=== PATIENT | male | born 1985 | race Caucasian/White ===

== ENCOUNTER 2017-10-19 17:56 | Emergency (ER) | payer SELFPAY ==
[2017-10-19 18:11] VITALS: BP 127/75; PULSE 76; RESP 16; TEMP 98.5; O2SAT 98
[2017-10-19] MEDS ORDERED: Tdap Vaccine 0.5 ml Vial (10-64 yrs) IM ONE ×2 (18:42→18:48)
--- NOTE | 2017-10-19 18:52 | C.PDOC ---
History Of Present Illness 32 y/o male with no pmh comes to ed with pain to right foot s/p stepping on nail that went through his construction boot earlier today. pt sts nail went approx one half inch into foot, did not appear to broken, has no fb sensation in foot. last tdap unknown. Time Seen by Provider: 10/19/17 18:22 Chief Complaint (Nursing): Lower Extremity Problem/Injury History Per: Patient History/Exam Limitations: no limitations Onset/Duration Of Symptoms: Hrs Current Symptoms Are (Timing): Still Present Severity: Mild Past Medical History Reviewed: Historical Data, Nursing Documentation, Vital Signs Vital Signs: Last Vital Signs Temp 98.5 F 10/19/17 18:05 Pulse 76 10/19/17 18:05 Resp 16 10/19/17 18:05 BP 127/75 10/19/17 18:05 Pulse Ox 98 10/19/17 19:44 - Medical History PMH: Gastritis Surgical History: Appendectomy (2011) Family History: States: Unknown Family Hx - Social History Hx Alcohol Use: No Hx Substance Use: No - Immunization History Hx Tetanus Toxoid Vaccination: No Hx Influenza Vaccination: Yes Hx Pneumococcal Vaccination: No Review Of Systems Constitutional: Negative for: Fever, Chills Musculoskeletal: Positive for: Foot Pain (right) Skin: Positive for: Other (puncture wound) Neurological: Negative for: Weakness, Numbness Physical Exam - Physical Exam Appears: Non-toxic, No Acute Distress Skin: Other (1 mm puncture wound to sole right foot at base of 1st metatarsal. no discharge. no erythema or warmth. mild tenderness to touch. ) Extremity: Other (puncture wound to sole of foot- see skin. from of toes and ankle. no swelling. ) Pulses: Right Dorsalis Pedis: Normal Neurological/Psych: Oriented x3, Normal Speech, Normal Cognition ED Course And Treatment O2 Sat by Pulse Oximetry: 98 Medical Decision Making Medical Decision Making: puncture wound right foot through construction boot, will give tetanus booster, cipro, ibuprofen and f/u podiatry. Disposition Counseled Patient/Family Regarding: Diagnosis, Need For Followup, Rx Given - Disposition Referrals: Podiatry Clinic [Outside] Disposition: HOME/ ROUTINE Disposition Time: 18:56 Condition: GOOD Additional Instructions: Mantenga la herida con los pies limpios y secos. Overly antibiticos segn lo prescrito. Overly ibuprofeno para el dolor si es necesario. Folllow up con cl sh[facility] de podologa en hoa semana. Regrese a la hai de emergencias si hay signos de infeccin, usha enrojecimiento, peor dolor, secrecin de la herida o fiebre. \ Keep wound on foot clean and dry. Take antibitoics as prescribed. Take ibuprofen for pain if needed. Folllow up with podiatry clinic in a week. Return to ER if there are any signs of infection, such as redness, worse pain, discharge from wound or fever Prescriptions: Ciprofloxacin HCl [Cipro] 500 mg PO BID #14 tab Instructions: Wound Care (DC) Forms: Gen Discharge Inst Trinidadian, [facility] (Trinidadian) Print Language: GRENADIAN - Clinical Impression Clinical Impression: Puncture wound of foot, right
== END 2017-10-19 19:07 | disposition home or self-care (01) ==
LOC: C.ER 17:56
DX: S91.331A Puncture wound without foreign body, right foot, initial encounter (principal); W45.0XXA Nail entering through skin, initial encounter; Y92.89 Other specified places as the place of occurrence of the external cause; Y99.0 Civilian activity done for income or pay